=== PATIENT | male | born 1965 | race African-American/Black ===

== ENCOUNTER 2018-03-16 12:04 | Inpatient (IN) | payer MEDICAID ==
[~2018-03-16] VITALS: Ht 190.5 cm; Wt 135.5 kg
[~2018-03-16 12:04] MED LIST: ADVAIR HFA 45MC1 AER INH; ALBUTEROL INH; ALPRAZOLAM; ALPRAZOLAM2 MG PO; ASPIRIN EC81 M1 PO; ASPIRIN325 PO; BACTRIM DS TAB1 EACH PO; CARAFATE 11 GM/10 M1 PO; CARBAMAZEPINE200 M3 PO; CLEOCIN HCL150 MG PO; CLEOCIN HCL300 MG PO; COLACE 100 MG100 MG PO; COUMADIN 1MG TAB1 M1; COUMADIN 5 MG TA5 M1 PO; COUMADIN7.5 MG PO; DOXYCYCLINE 10100 MG PO; FENTANYL PA50 MCG/HR TRANSDERM; FLEXERIL PO; HCTZ; HYDROCHLOROTHIA25 M2 PO; HYDROCODON-ACE1 EAC7 PO; LORTAB; MEDROLDOSEPACK PO; METFORMIN HCL500 MG PO; METOPROLOL SUCC25 M1 PO; NEXIUM40 M2 PO; NEXIUM40 MG PO; NITROGLYCERIN0.4 MG SL; NITROSTAT0.3 MG SL; NORCO 5-325 TA1 EACH PO; OXYCODONE HCL 55 MG PO; OXYCODONE HCL E15 MG PO; OXYCODONE HCL15 MG PO; OXYCONTIN10 M1 PO; OXYCONTIN20 M1 PO; PERCOCET 5-3251 EACH PO; PERCOCET 7.5-31 EACH PO; PERCOCET PO; PRILOSEC 20 MG20 MG PO; PROCTOCREAM-HC30 G1 RC; PROCTOFOAM-HC F10 GM RC; PROMETHAZINE-C120 ML PO; PROTONIX PO; PROTONIX40 M1 PO; PROTONIX40 M4 PO; RESCUE INHALER INH; ROXICODONE30 MG PO; SEROQUEL 100 M100 MG PO; SEROQUEL 50 MG50 M1 PO; SEROQUEL 50 MG50 MG PO; SEROQUEL XR400 M1 PO; TEGRETOL XR200 MG PO; ULTRAM50 MG PO; XANAX XR2 MG PO; ZOFRAN 4 MG ORAL4 MG PO; ZOFRAN4 MG PO; ZPAK PO
[2018-03-16 12:07] VITALS: BP 148/84
[2018-03-16] MEDS ORDERED: XARELTO20 MG PO (12:15)
[2018-03-16 12:30] LABS: ABSOLUTE EOSINOPHILS 0.2 thou/uL (0.0-0.7); ABSOLUTE LYMPHOCYTES 1.5 thou/uL (0.8-5.3); ABSOLUTE MONOCYTES 0.4 thou/uL (0.0-1.2); ABSOLUTE NEUTROPHILS 1.3 thou/uL (1.6-8.1); BASOPHILS 0.7 %; EOSINOPHILS 5.5 %; HEMATOCRIT 47.5 % (42.0-52.0); HEMOGLOBIN 15.7 gm/dL (14.0-18.0); MCH 29.5 pg (26.0-34.0); MCHC 33.1 g/dL (28.0-37.0); MCV 89.1 fL (80.0-100.0); MONOCYTES 11.7 %; MPV 7.4 fl. (7.2-11.1); NUCLEATED RBCS 0 /100WBC; PLATELET COUNT* 183 thou/uL (150-400); POLYS 38.1 %; RBC 5.34 mil/uL (4.50-6.00); RDW-CV 14.2 % (10.5-14.5); WBC 3.4 thou/uL (4.0-11.0)
[2018-03-16 12:43] LABS: INR 1.1; PROTIME 10.9 Seconds (9.20-11.50)
[2018-03-16 12:52] LABS: ANION GAP 6 mmol/L (7-16); BUN 13 mg/dL (7-18); CALCIUM 8.9 mg/dL (8.5-10.1); CHLORIDE 104 mmol/L (98-107); CO2 29 mmol/L (21-32); CREATININE 1.1 mg/dL (0.6-1.3); GLUCOSE 136 mg/dL (70-99); POTASSIUM 3.4 mmol/L (3.5-5.1); SODIUM 139 mmol/L (136-145)
[2018-03-16 13:02] LABS: ALBUMIN 3.7 g/dL (3.4-5.0); ALKALINE PHOSPHATASE 78 U/L (46-116); LIPASE 115 U/L (73-393); MAGNESIUM 1.8 mg/dL (1.8-2.4); NT-PRO BRAIN NAT PEPTIDE 26 pg/mL (<300); SGOT 21 U/L (15-37); SGPT 25 U/L (30-65); TOTAL BILIRUBIN 0.5 mg/dL (<0.1-1.0); TOTAL PROTEIN 7.3 g/dL (6.4-8.2); TROPONIN-I LEVEL <0.06 ng/mL (<0.06)
[2018-03-16] MEDS ORDERED: ASPIR 8181 MG PO (14:19)
[2018-03-16] MEDS ORDERED: OXYCODONE HCL 55 MG PO (14:20)
[2018-03-16 14:24] VITALS: BP 157/74
[2018-03-16 15:09] VITALS: BP 157/74
[2018-03-16 20:00] VITALS: BP 142/76
[2018-03-17] VITALS: BP 125/65
[2018-03-17 04:00] VITALS: BP 115/54
--- NOTE | 2018-03-17 11:08 | EKG ---
[place] [address] ELECTROCARDIOGRAM REPORT Name: JASWANT GREENWOOD Room: [address] DIS IN M.R.#: [id number] Admission: 03/16/18 Attend Phys: Abdias Kelly Discharge: 03/17/18 Date of : 69 Report #: [id number] THIS REPORT FOR: //name// [facility] ED Test Date: 2018-03-16 Test Time: 12:11:28 Pat Name: JASWANT GREENWOOD Department: Room: [facility] Gender: M Corporate Quality Assurance Manager: : 1965 Requested By: Brandon Cobian Order Number: [id number] MD: Duy Rodney Measurements Intervals [place] Rate: 79 P: 37 ID: 181 QRS: 14 QRSD: 96 T: 9 QT: 370 QTc: 425 Interpretive Statements Sinus rhythm Left atrial enlargement ST elev, probable normal early repol pattern Compared to ECG 05/06/2017 20:45:58 Left ventricular hypertrophy no longer present ST (T wave) deviation still present Electronically Signed On 03-17-2018 11:08:28 CDT by Duy Rodney [email or web address] <ELECTRONICALLY SIGNED> By: Duy Rodney MD, [facility] 03/17/18 1108 1211 1211 Duy Rodney MD, [facility] /EPI
== END 2018-03-17 07:15 | disposition left against medical advice (07) | DRG 311 ==
LOC: M.ERS 12:04 → M.TBA-ER 14:07 → M.2W 14:56
PROVIDERS: Emergency Medicine Emergency Medical Services; ADMIT Internal Medicine
DX: I24.9 Acute ischemic heart disease, unspecified (principal); I50.22 Chronic systolic (congestive) heart failure; I25.10 Atherosclerotic heart disease of native coronary artery without angina pectoris; F41.9 Anxiety disorder, unspecified; E11.9 Type 2 diabetes mellitus without complications; F20.9 Schizophrenia, unspecified; F31.9 Bipolar disorder, unspecified; I11.0 Hypertensive heart disease with heart failure; F17.210 Nicotine dependence, cigarettes, uncomplicated; G56.00 Carpal tunnel syndrome, unspecified upper limb; Z88.1 Allergy status to other antibiotic agents; Z88.8 Allergy status to other drugs, medicaments and biological substances; Z79.899 Other long term (current) drug therapy; Z95.5 Presence of coronary angioplasty implant and graft; I25.2 Old myocardial infarction; Z86.711 Personal history of pulmonary embolism

== ENCOUNTER 2018-05-17 15:27 | Emergency (ER) | payer MEDICAID ==
[~2018-05-17] VITALS: Ht 190.5 cm; Wt 128.8 kg
[~2018-05-17 15:27] MED LIST changes: +ASPIR 8181 MG PO; +XARELTO20 MG PO
[2018-05-17] MEDS ORDERED: OXYCODONE HCL10 MG PO (15:44)
[2018-05-17 16:35] LABS: LIPASE 151 U/L (73-393); TROPONIN-I LEVEL <0.06 ng/mL (<0.06)
[2018-05-17 16:46] LABS: ABSOLUTE EOSINOPHILS 0.2 thou/uL (0.0-0.7); ABSOLUTE LYMPHOCYTES 1.7 thou/uL (0.8-5.3); ABSOLUTE MONOCYTES 0.4 thou/uL (0.0-1.2); ABSOLUTE NEUTROPHILS 1.7 thou/uL (1.6-8.1); BASOPHILS 0.4 %; EOSINOPHILS 4.6 %; HEMATOCRIT 46.3 % (42.0-52.0); HEMOGLOBIN 15.4 gm/dL (14.0-18.0); LYMPHOCYTES 42.3 %; MCH 29.7 pg (26.0-34.0); MCHC 33.2 g/dL (28.0-37.0); MCV 89.4 fL (80.0-100.0); MONOCYTES 10.3 %; MPV 7.3 fl. (7.2-11.1); NUCLEATED RBCS 0 /100WBC; PLATELET COUNT* 210 thou/uL (150-400); POLYS 42.4 %; RBC 5.18 mil/uL (4.50-6.00); RDW-CV 14.3 % (10.5-14.5); WBC 4.1 thou/uL (4.0-11.0)
[2018-05-17 17:08] LABS: CALCIUM 9.5 mg/dL (8.5-10.1); POTASSIUM 4.1 mmol/L (3.5-5.1)
[2018-05-17 17:13] LABS: ALBUMIN 4.2 g/dL (3.4-5.0); TOTAL BILIRUBIN 0.4 mg/dL (<0.1-1.0); TOTAL PROTEIN 7.6 g/dL (6.4-8.2)
[2018-05-17 17:50] VITALS: BP 133/72
--- NOTE | 2018-05-18 11:37 | EKG ---
[place] [address] ELECTROCARDIOGRAM REPORT Name: JASWANT GREENWOOD Room: [facility]#: [id number] Admission: 05/17/18 Attend Phys: Discharge: 05/17/18 Date of : 69 Report #: [id number] THIS REPORT FOR: //name// [facility] ED Test Date: 2018-05-17 Test Time: 16:32:54 Pat Name: JASWANT GREENWOOD Department: Room: Gender: M Pharmacist: Robert CISNEROS : 1965 Requested By: Jacqueline Colvin Order Number: [id number] MD: Westley Arzate Measurements Intervals [place] Rate: 66 P: 13 CT: 198 QRS: 2 QRSD: 90 T: -3 QT: 383 QTc: 402 Interpretive Statements Sinus rhythm Low voltage, precordial leads Left ventricular hypertrophy Borderline T abnormalities, inferior leads Borderline ST elevation, lateral leads Baseline wander in lead(s) V3 Compared to ECG 03/16/2018 12:11:28 Low QRS voltage now present Left ventricular hypertrophy now present T-wave abnormality now present Atrial abnormality no longer present ST (T wave) deviation still present Electronically Signed On 05-18-2018 11:37:03 CDT by Westley Arzate [email or web address] <ELECTRONICALLY SIGNED> By: Westley Arzate MD, FACC 05/18/18 1137 163 163 Westley Arzate MD, FACC /EPI
== END 2018-05-17 17:53 | disposition left against medical advice (07) ==
LOC: M.ERS 15:27
PROVIDERS: Nurse Practitioner Family
DX: N50.812 Left testicular pain (principal); N50.811 Right testicular pain; R10.30 Lower abdominal pain, unspecified; R19.7 Diarrhea, unspecified; I25.10 Atherosclerotic heart disease of native coronary artery without angina pectoris; E11.9 Type 2 diabetes mellitus without complications; F31.9 Bipolar disorder, unspecified; F20.9 Schizophrenia, unspecified; I11.0 Hypertensive heart disease with heart failure; I50.22 Chronic systolic (congestive) heart failure; F17.210 Nicotine dependence, cigarettes, uncomplicated; Z95.5 Presence of coronary angioplasty implant and graft; Z86.711 Personal history of pulmonary embolism; Z88.5 Allergy status to narcotic agent; Z88.1 Allergy status to other antibiotic agents; Z88.6 Allergy status to analgesic agent; Z88.8 Allergy status to other drugs, medicaments and biological substances

== ENCOUNTER 2018-06-17 16:46 | Emergency (ER) | payer MEDICAID ==
[~2018-06-17] VITALS: Ht 190.5 cm; Wt 127.0 kg
[~2018-06-17 16:46] MED LIST changes: +OXYCODONE HCL10 MG PO
[2018-06-17 17:12] LABS: ABSOLUTE EOSINOPHILS 0.2 thou/uL (0.0-0.7); ABSOLUTE LYMPHOCYTES 2.3 thou/uL (0.8-5.3); ABSOLUTE MONOCYTES 0.4 thou/uL (0.0-1.2); ABSOLUTE NEUTROPHILS 1.9 thou/uL (1.6-8.1); BASOPHILS 0.8 %; EOSINOPHILS 3.7 %; HEMATOCRIT 45.6 % (42.0-52.0); HEMOGLOBIN 14.9 gm/dL (14.0-18.0); LYMPHOCYTES 47.9 %; MCH 29.2 pg (26.0-34.0); MCHC 32.7 g/dL (28.0-37.0); MCV 89.3 fL (80.0-100.0); NUCLEATED RBCS 0 /100WBC; PLATELET COUNT* 213 thou/uL (150-400); POLYS 38.6 %; RBC 5.11 mil/uL (4.50-6.00); RDW-CV 14.4 % (10.5-14.5); WBC 4.9 thou/uL (4.0-11.0)
[2018-06-17 17:22] LABS: APTT 31.3 Seconds (25.0-31.3); PROTIME 10.6 Seconds (9.20-11.50)
[2018-06-17 17:23] LABS: ANION GAP 7 mmol/L (7-16); BUN 15 mg/dL (7-18); CALCIUM 8.8 mg/dL (8.5-10.1); CHLORIDE 104 mmol/L (98-107); CO2 29 mmol/L (21-32); CREATININE 0.9 mg/dL (0.6-1.3); GLUCOSE 95 mg/dL (70-99); POTASSIUM 3.5 mmol/L (3.5-5.1); SODIUM 140 mmol/L (136-145)
[2018-06-17 17:55] LABS: ALBUMIN 3.9 g/dL (3.4-5.0); ALKALINE PHOSPHATASE 71 U/L (46-116); LIPASE 207 U/L (73-393); MAGNESIUM 2.1 mg/dL (1.8-2.4); NT-PRO BRAIN NAT PEPTIDE 14 pg/mL (<300); SGOT 16 U/L (15-37); SGPT 19 U/L (30-65); TOTAL BILIRUBIN 0.3 mg/dL (<0.1-1.0); TOTAL PROTEIN 7.3 g/dL (6.4-8.2); TROPONIN-I LEVEL <0.06 ng/mL (<0.06)
[2018-06-17 18:09] VITALS: BP 107/54
--- NOTE | 2018-06-18 09:03 | EKG ---
[place] [address] ELECTROCARDIOGRAM REPORT Name: JASWANT GREENWOOD Room: [facility]#: [id number] Admission: 06/17/18 Attend Phys: Discharge: 06/17/18 Date of : 69 Report #: [id number] THIS REPORT FOR: //name// [facility] ED Test Date: 2018-06-17 Test Time: 16:53:42 Pat Name: JASWANT GREENWOOD Department: Room: Gender: M Training Program Assistant: Andrea BRAY : 1965 Requested By: Pipo Mckeon Order Number: [id number] MD: Shiraz Sethi Measurements Intervals [place] Rate: 64 P: 26 [place]: 193 QRS: 10 QRSD: 94 T: 19 QT: 396 QTc: 409 Interpretive Statements Sinus rhythm Left ventricular hypertrophy ST elevation, consider early repolarization Lateral leads are also involved Baseline wander in lead(s) II,III,aVF Compared to ECG 05/17/2018 16:32:54 no change Electronically Signed On 06-18-2018 9:03:21 DIRECTOR OF PAYROLL by Shiraz Sethi [email or web address] <ELECTRONICALLY SIGNED> By: Shiraz Sethi MD, [facility] 06/18/18 0903 1653 1653 Shiraz Sethi MD, [facility] /EPI
== END 2018-06-17 18:09 | disposition home or self-care (01) ==
LOC: M.ERS 16:46
PROVIDERS: Family Medicine
DX: R07.89 Other chest pain (principal); I25.10 Atherosclerotic heart disease of native coronary artery without angina pectoris; F41.9 Anxiety disorder, unspecified; E11.9 Type 2 diabetes mellitus without complications; F31.9 Bipolar disorder, unspecified; I11.0 Hypertensive heart disease with heart failure; I50.22 Chronic systolic (congestive) heart failure; F17.210 Nicotine dependence, cigarettes, uncomplicated; Z88.6 Allergy status to analgesic agent; Z88.1 Allergy status to other antibiotic agents; Z88.8 Allergy status to other drugs, medicaments and biological substances; Z95.5 Presence of coronary angioplasty implant and graft; Z86.711 Personal history of pulmonary embolism; F20.9 Schizophrenia, unspecified

== ENCOUNTER 2018-10-19 12:41 | Emergency (ER) | payer MEDICAID ==
[~2018-10-19] VITALS: Ht 190.5 cm; Wt 129.3 kg
[2018-10-19 13:20] LABS: ABSOLUTE EOSINOPHILS 0.1 thou/uL (0.0-0.7); ABSOLUTE LYMPHOCYTES 1.7 thou/uL (0.8-5.3); ABSOLUTE MONOCYTES 0.6 thou/uL (0.0-1.2); ABSOLUTE NEUTROPHILS 2.7 thou/uL (1.6-8.1); BASOPHILS 0.6 %; EOSINOPHILS 2.9 %; HEMATOCRIT 50.6 % (42.0-52.0); HEMOGLOBIN 16.6 gm/dL (14.0-18.0); LYMPHOCYTES 32.7 %; MCH 29.1 pg (26.0-34.0); MCHC 32.8 g/dL (28.0-37.0); MCV 88.9 fL (80.0-100.0); MONOCYTES 10.8 %; MPV 7.3 fl. (7.2-11.1); NUCLEATED RBCS 0 /100WBC; PLATELET COUNT* 231 thou/uL (150-400); RBC 5.69 mil/uL (4.50-6.00); RDW-CV 14.9 % (10.5-14.5); WBC 5.1 thou/uL (4.0-11.0)
[2018-10-19 13:27] LABS: INR 1.3; PROTIME 13.4 Seconds (9.20-11.50)
[2018-10-19 13:42] LABS: ALBUMIN 4.1 g/dL (3.4-5.0); ALKALINE PHOSPHATASE 68 U/L (46-116); ANION GAP 8 mmol/L (7-16); BUN 15 mg/dL (7-18); CALCIUM 9.2 mg/dL (8.5-10.1); CHLORIDE 104 mmol/L (98-107); CO2 28 mmol/L (21-32); GLUCOSE 102 mg/dL (70-99); LIPASE 101 U/L (73-393); MAGNESIUM 1.8 mg/dL (1.8-2.4); NT-PRO BRAIN NAT PEPTIDE 12 pg/mL (<300); POTASSIUM 3.8 mmol/L (3.5-5.1); SGOT 16 U/L (15-37); SGPT 28 U/L (30-65); SODIUM 140 mmol/L (136-145); TOTAL BILIRUBIN 0.7 mg/dL (<0.1-1.0); TROPONIN-I LEVEL <0.06 ng/mL (<0.06)
[2018-10-19] MEDS ORDERED: COUMADIN 3 MG TA3 MG PO (13:53)
[2018-10-19] MEDS ORDERED: LIPITOR10 MG PO (13:55)
[2018-10-19] MEDS ORDERED: KLOR-CON 1010 MEQ PO (13:55)
[2018-10-19 14:10] LABS: URINE BILIRUBIN NEGATIVE (Negative); URINE BLOOD NEGATIVE (Negative); URINE CLARITY CLEAR; URINE COLOR DARK YELLOW; URINE GLUCOSE-RANDOM NEGATIVE (Negative); URINE KETONES NEGATIVE (Negative); URINE LEUKOCYTES-REFLEX NEGATIVE (Negative); URINE NITRITE-REFLEX NEGATIVE (Negative); URINE PROTEIN NEGATIVE (Negative); URINE SPECIFIC GRAVITY 1.025 (1.005-1.030); URINE UROBILINOGEN 0.2 E.U./dl (0.2-1.0)
[2018-10-19] MEDS ORDERED: ZOFRAN ODT4 MG DISSOLVE (14:23)
[2018-10-19] MEDS ORDERED: DOXYCYCLINE 10100 MG PO (14:23)
[2018-10-19 14:39] VITALS: BP 145/78
--- NOTE | 2018-10-20 09:09 | EKG ---
[place] [address] ELECTROCARDIOGRAM REPORT Name: JASWANT GREENWOOD [id number] Admission: 10/19/18 Attend Phys: Discharge: 10/19/18 Date of : 69 Report #: [id number] THIS REPORT FOR: //name// [facility] ED Test Date: 2018-10-19 Test Time: 12:48:27 Pat Name: JASWANT GREENWOOD Department: Room: Gender: M Seed Service Advisor: ELDER : 1965 Requested By: Brandon Cobian Order Number: [id number] MD: Shiraz Sethi Measurements Intervals [place] Rate: 82 P: 44 [place]: 172 QRS: 24 QRSD: 90 T: 13 QT: 374 QTc: 437 Interpretive Statements Sinus rhythm Left atrial enlargement ST elev, probable normal early repol pattern Baseline wander in lead(s) V4 Compared to ECG 06/17/2018 16:53:42 Atrial abnormality now present Left ventricular hypertrophy no longer present ST (T wave) deviation still present Electronically Signed On 10-20-2018 9:08:53 CDT by Shiraz Sethi [email or web address] <ELECTRONICALLY SIGNED> By: Shiraz Sethi MD, FAC 10/20/18 0908 1248 1248 Shiraz Sethi MD, [facility] /EPI
== END 2018-10-19 14:39 | disposition home or self-care (01) ==
LOC: M.ERS 12:41
PROVIDERS: Emergency Medicine Emergency Medical Services
DX: N41.9 Inflammatory disease of prostate, unspecified (principal); R07.89 Other chest pain; I25.10 Atherosclerotic heart disease of native coronary artery without angina pectoris; F41.9 Anxiety disorder, unspecified; I10 Essential (primary) hypertension; E11.9 Type 2 diabetes mellitus without complications; F20.9 Schizophrenia, unspecified; I50.22 Chronic systolic (congestive) heart failure; F31.9 Bipolar disorder, unspecified; F17.210 Nicotine dependence, cigarettes, uncomplicated; Z86.711 Personal history of pulmonary embolism; Z88.1 Allergy status to other antibiotic agents; Z88.6 Allergy status to analgesic agent; Z88.8 Allergy status to other drugs, medicaments and biological substances; Z95.5 Presence of coronary angioplasty implant and graft

== ENCOUNTER 2018-12-12 18:14 | Emergency (ER) | payer MEDICAID ==
[~2018-12-12] VITALS: Ht 190.5 cm; Wt 124.7 kg
[~2018-12-12 18:14] MED LIST changes: +COUMADIN 3 MG TA3 MG PO; +KLOR-CON 1010 MEQ PO; +LIPITOR10 MG PO; +ZOFRAN ODT4 MG DISSOLVE
[2018-12-12 19:28] VITALS: BP 131/71
== END 2018-12-12 19:28 | disposition home or self-care (01) ==
LOC: M.ERS 18:14
DX: M25.531 Pain in right wrist (principal); Z98.890 Other specified postprocedural states; I10 Essential (primary) hypertension; F41.9 Anxiety disorder, unspecified; E11.9 Type 2 diabetes mellitus without complications; F20.9 Schizophrenia, unspecified; I11.0 Hypertensive heart disease with heart failure; I50.22 Chronic systolic (congestive) heart failure; Z95.5 Presence of coronary angioplasty implant and graft; F17.210 Nicotine dependence, cigarettes, uncomplicated; Z88.1 Allergy status to other antibiotic agents; Z88.5 Allergy status to narcotic agent; Z88.6 Allergy status to analgesic agent; Z88.8 Allergy status to other drugs, medicaments and biological substances

== ENCOUNTER 2018-12-20 15:01 | Emergency (ER) | payer MEDICAID ==
[~2018-12-20] VITALS: Ht 188 cm; Wt 129.7 kg
[2018-12-20 15:04] VITALS: BP 145/88
[2018-12-20] MEDS ORDERED: METOPROLOL SUCC25 M1 PO (15:23)
== END 2018-12-20 15:31 | disposition home or self-care (01) ==
LOC: M.ERS 15:01
DX: Z48.01 Encounter for change or removal of surgical wound dressing (principal); L02.511 Cutaneous abscess of right hand; I25.10 Atherosclerotic heart disease of native coronary artery without angina pectoris; F41.9 Anxiety disorder, unspecified; E11.9 Type 2 diabetes mellitus without complications; F31.9 Bipolar disorder, unspecified; F20.9 Schizophrenia, unspecified; I11.0 Hypertensive heart disease with heart failure; I50.22 Chronic systolic (congestive) heart failure; F17.210 Nicotine dependence, cigarettes, uncomplicated; Z86.711 Personal history of pulmonary embolism; Z88.6 Allergy status to analgesic agent; Z88.8 Allergy status to other drugs, medicaments and biological substances; Z88.1 Allergy status to other antibiotic agents

== ENCOUNTER 2019-03-14 13:58 | Observation (INO) | payer MEDICAID ==
[~2019-03-14] VITALS: Ht 188 cm; Wt 127.5 kg
[2019-03-14 14:02] VITALS: BP 122/78
[2019-03-14 14:43] LABS: ANION GAP 11 mmol/L (7-16); BUN 14 mg/dL (7-18); CALCIUM 9.6 mg/dL (8.5-10.1); CHLORIDE 104 mmol/L (98-107); CO2 26 mmol/L (21-32); CREATININE 0.9 mg/dL (0.6-1.3); GLUCOSE 86 mg/dL (70-99); POTASSIUM 3.8 mmol/L (3.5-5.1); SODIUM 141 mmol/L (136-145)
[2019-03-14 14:47] LABS: ABSOLUTE EOSINOPHILS 0.2 thou/uL (0.0-0.7); ABSOLUTE LYMPHOCYTES 1.6 thou/uL (0.8-5.3); ABSOLUTE MONOCYTES 0.6 thou/uL (0.0-1.2); ABSOLUTE NEUTROPHILS 2.7 thou/uL (1.6-8.1); BASOPHILS 0.6 %; EOSINOPHILS 3.2 %; HEMATOCRIT 49.5 % (42.0-52.0); HEMOGLOBIN 16.2 gm/dL (14.0-18.0); LYMPHOCYTES 31.5 %; MCH 29.3 pg (26.0-34.0); MCHC 32.8 g/dL (28.0-37.0); MCV 89.3 fL (80.0-100.0); MONOCYTES 12.1 %; MPV 7.3 fl. (7.2-11.1); NUCLEATED RBCS 0 /100WBC; PLATELET COUNT* 236 thou/uL (150-400); POLYS 52.6 %; RBC 5.54 mil/uL (4.50-6.00); RDW-CV 14.8 % (10.5-14.5); WBC 5.1 thou/uL (4.0-11.0)
[2019-03-14 15:01] LABS: INR 2.9; PROTIME 28.8 Seconds (9.20-11.50)
[2019-03-14 15:01] LABS: ALBUMIN 3.8 g/dL (3.4-5.0); ALKALINE PHOSPHATASE 64 U/L (46-116); LIPASE 86 U/L (73-393); NT-PRO BRAIN NAT PEPTIDE 15 pg/mL (<300); SGOT 18 U/L (15-37); SGPT 25 U/L (30-65); TOTAL BILIRUBIN 0.5 mg/dL (<0.1-1.0); TOTAL PROTEIN 7.9 g/dL (6.4-8.2); TROPONIN-I LEVEL <0.06 ng/mL (<0.06)
[2019-03-14] MEDS ORDERED: XANAX1 MG PO (17:01)
[2019-03-14 17:37] VITALS: BP 149/74
[2019-03-14 17:50] VITALS: BP 145/78
[2019-03-14] MEDS ORDERED: COUMADIN 3 MG TA3 M1 PO (18:29)
[2019-03-14] MEDS ORDERED: COUMADIN 10MG T10 M1 PO (18:31)
[2019-03-14] MEDS ORDERED: REMERON15 MG PO (19:39)
[2019-03-14 20:00] VITALS: BP 145/78
[2019-03-15] VITALS: BP 124/55
[2019-03-15 04:00] VITALS: BP 151/73
[2019-03-15 04:15] LABS: HEMATOCRIT 47.2 % (42.0-52.0); HEMOGLOBIN 15.7 gm/dL (14.0-18.0); MCH 29.8 pg (26.0-34.0); MCHC 33.2 g/dL (28.0-37.0); MCV 89.9 fL (80.0-100.0); MPV 7.5 fl. (7.2-11.1); RBC 5.25 mil/uL (4.50-6.00); RDW-CV 15.1 % (10.5-14.5); WBC 4.4 thou/uL (4.0-11.0)
[2019-03-15 04:23] LABS: INR 3.7; PROTIME 36.4 Seconds (9.20-11.50)
[2019-03-15 04:28] LABS: CALCIUM 8.9 mg/dL (8.5-10.1); CREATININE 0.9 mg/dL (0.6-1.3); MAGNESIUM 1.7 mg/dL (1.8-2.4); POTASSIUM 3.5 mmol/L (3.5-5.1)
[2019-03-15 08:00] VITALS: BP 130/64
[2019-03-15] MEDS ORDERED: OXYCODONE HCL10 MG PO (09:49)
--- NOTE | 2019-03-15 10:55 | CON ---
[address] [address] CONSULTATION Name: JASWANT GREENWOOD Room: [address] MAdanRAdan#: [id number] Admission: 03/14/19 Attend Phys: Matt Mckenzie MD Discharge: Date of : 69 Report #: [id number] THIS REPORT FOR: //name// CC: JEFF physician/PCP Matt Mckenzie DATE OF SERVICE: 03/15/2019 CARDIOLOGY CONSULTATION HISTORY OF PRESENT ILLNESS: The patient is a 53-year-old white male, who I was asked to see in the hospital today after he complained of chest pain. The patient has an extensive past medical history. He apparently had coronary stents placed in [place] almost 20 years ago. Recently, he has been followed at [facility]. He was actually admitted here to [facility] in 2013 with chest pain. He saw Dr. Pitt at that time and underwent a cardiac catheterization that showed ejection fraction of 40%, tortuous LAD, but no significant obstruction was noted. There is no mention in Dr. Pitt's notes of any coronary stents. The patient was last here at [facility] in 04/2018 with chest pain. He apparently does have a history of schizophrenia. He actually had a nuclear stress test here in 2016 that showed no evidence of ischemia. The patient has apparently had a previous stroke affecting his left side and uses a walker. A year ago, he was admitted to [facility] and had a DVT and PE and was placed on warfarin. He apparently has had some bleeding is scheduled for endoscopy at [facility]. He was at home yesterday when he felt a pain in his chest. He went into his back, he felt nauseated and short of breath. He called the EMS and brought here to [facility]. He was admitted for further evaluation and treatment. He does note exertional dyspnea and palpitations. He has had no recent syncope. PAST MEDICAL HISTORY: He has had back surgery, keloid removal from his face. He has hypertension and diabetes. MEDICATIONS: Consist of aspirin, Tegretol, metoprolol, hydrochlorothiazide, metformin, oxycodone, warfarin and Xanax. ALLERGIES: HE HAS INTOLERANCE TO MULTIPLE MEDICATIONS INCLUDING MORPHINE, AMOXICILLIN AND TRAMADOL. FAMILY HISTORY: His uncle had heart disease. SOCIAL HISTORY: He is . He and his live in [place] on disability. He used to work in construction. He still smokes half pack of cigarettes a day, has a history of alcohol abuse and went through alcohol rehab. He also has a history of cocaine use in the past, but no [place] [address] CONSULTATION Name: JASWANT GREENWOOD Room: [address] Babs Kumar#: [id number] Admission: 03/14/19 Attend Phys: Matt Mckenzie MD Discharge: Date of : 69 Report #: [id number] REVIEW OF SYSTEMS: He has a history of COPD and is on oxygen at home. He has been told in the past he has evidence of early liver disease. No kidney disease. No cancer. He has a history of bipolar disorder. He has had keloid formation. PHYSICAL EXAMINATION: GENERAL: Revealed an elderly male, lying in bed. He appeared in no acute distress. VITAL SIGNS: He had a blood pressure of 150/70, pulse 70, he is afebrile. HEENT: He was anicteric. Conjunctivae are pink. Mucous membranes appear moist. NECK: Veins do not appear distended. CHEST: Clear to auscultation. CARDIOVASCULAR: Regular rate and rhythm. ABDOMEN: Soft. EXTREMITIES: Had no edema. Dorsalis pedis pulse 2+ bilaterally. SKIN: Warm, dry. NEUROLOGIC: Nonfocal. RADIOLOGICAL DATA: His ECG on admission showed a sinus rhythm; there is no significant ST or T-wave changes noted. His workup yesterday, he had a CT scan of the head performed because of confusion that showed no acute abnormalities. Chest x-ray showed normal heart size, clear lung chavez. LABORATORY DATA: His lab work yesterday: Sodium 142, creatinine 0.9, glucose 105. Liver function studies were normal. Troponins all 0.06. His INR was 2.9, is now 3.7 this morning. White blood cell count 4.4, hemoglobin 15.7. IMPRESSION RECOMMENDATIONS: 1. Chest pain. No evidence of acute coronary syndrome. Suspect noncardiac. The patient had heart catheterization in 2013 here at [facility] that showed no significant coronary artery disease. His last nuclear stress test in 2017 showed no ischemia. Recommend no further cardiac workup at this time. 2. Hypertension. The patient has been on a beta ronni. 3. History of deep venous thrombosis and pulmonary embolism. The patient is anticoagulated, I would continue, INRs between 2 and 3. 4. Diabetes. 5. Bipolar disorder. 6. Previous tobacco abuse. 7. History of alcohol abuse. 8. History of illicit drug use. <ELECTRONICALLY SIGNED> By: Shiraz Sethi MD, [facility] 03/15/19 1055 0821 [id number] Sethi MD, FACC /nt
[2019-03-15] MEDS ORDERED: VOLTAREN GEL 1100 G2 TOP (11:18)
[2019-03-15 11:54] VITALS: BP 130/64
--- NOTE | 2019-03-16 12:24 | EKG ---
[place] [address] ELECTROCARDIOGRAM REPORT Name: JASWANT GREENWOOD Room: [address] MR.#: [id number] Admission: 03/14/19 Attend Phys: Matt Mckenzie MD Discharge: 03/15/19 Date of : 69 Report #: [id number] THIS REPORT FOR: //name// [facility] ED Test Date: 2019-03-14 Test Time: 14:05:23 Pat Name: JASWANT GREENWOOD Department: Room: [facility] Gender: M Machine Lead Burner: TLD : 1965 Requested By: Meche Ryder Order Number: [id number] MD: Shiraz Sethi Measurements Intervals [place] Rate: 90 P: 29 [place]: 165 QRS: 23 QRSD: 90 T: 2 QT: 363 QTc: 444 Interpretive Statements Sinus rhythm Left atrial enlargement Borderline T abnormalities, inferior leads Borderline ST elevation, anterolateral leads Compared to ECG 10/19/2018 12:48:27 ST (T wave) deviation still present Electronically Signed On 03-16-2019 12:24:38 CDT by Shiraz Sethi [email or web address] <ELECTRONICALLY SIGNED> By: Shiraz Sethi MD, [facility] 03/16/19 1224 1405 1405 Shiraz Sethi MD, [facility] /EPI
== END 2019-03-15 13:30 | disposition home or self-care (01) ==
LOC: M.ERS 13:58 → M.TBA-ER 16:34 → M.2W 17:52
PROVIDERS: Personal Emergency Response Attendant; ADMIT Internal Medicine
DX: I25.10 Atherosclerotic heart disease of native coronary artery without angina pectoris (principal); M54.12 Radiculopathy, cervical region; G89.29 Other chronic pain; F11.20 Opioid dependence, uncomplicated; F41.1 Generalized anxiety disorder; F12.90 Cannabis use, unspecified, uncomplicated; E11.9 Type 2 diabetes mellitus without complications; D68.69 Other thrombophilia; F20.9 Schizophrenia, unspecified; I10 Essential (primary) hypertension; F31.9 Bipolar disorder, unspecified; I11.0 Hypertensive heart disease with heart failure; I50.22 Chronic systolic (congestive) heart failure; Z79.82 Long term (current) use of aspirin; Z79.899 Other long term (current) drug therapy; Z79.01 Long term (current) use of anticoagulants